=== PATIENT | female | born 2000 | race Caucasian/White ===

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

== ENCOUNTER → 2021-07-21 | Day surgery (SDC) | payer OTHER ==
--- NOTE | 2021-07-06 11:38 | PCM.PREANE ---
Preanesthetic Assessment - Allergies Allergies/Adverse Reactions: Allergies Allergy/AdvReac Type Severity Reaction Status Date / Time No Known Allergies Allergy Verified 06/26/19 22:37 PreAnesthesia Questionnaire - Past Health History Medical/Surgical History: Denies Medical/Surgical History [employer] History: Reports: - HOME MEDS Home Medications: Home Meds Prenat 115/Iron Fum/Folic/Dss [ 19 Tablet] 1 each PO DAILY 06/27/19 [History] Acetaminophen [Tylenol] 650 mg PO Q6H PRN tablet 06/28/19 [Rx] Docusate Sodium [Colace] 100 mg PO BID PRN cap 06/28/19 [Rx] Ibuprofen [Motrin] 600 mg PO Q6H PRN tablet 06/28/19 [Rx] teagan awaneL [Tucks] 1 pad TOP ASDIRECTED PRN pad 06/28/19 [Rx] - CURRENT (IN HOUSE) MEDS Current Meds: Current Medications Lactated Ringer's (Ringers, Lactated) 1,000 mls @ 125 mls/hr IV ASDIRECTED ALECIA Stop: 07/07/21 23:00 Lidocaine/Sodium Bicarbonate (Lidocaine 1%/Sod Bicarbonate In Ns 8.4% 1 Ml Syringe) 0.25 ml IDERM ONETIME PRN PRN Reason: Prior to IV Start Stop: 07/07/21 18:00 Sodium Chloride (Sodium Chloride 0.9% 10 Ml Syringe) 10 ml FLUSH ASDIRECTED PRN PRN Reason: Keep Vein Open Stop: 07/07/21 18:00
--- NOTE | 2021-07-20 21:46 | PCM.LDHP ---
L&D History of Present Illness - General Date of Service: 07/21/21 Admit Problem/Dx: Admission Diagnosis/Problem Admission Diagnosis/Problem 07/20/21 21:38 Amara is a 21-year-old 3 para 1-0-1-1 female presently at 13-5/7 weeks gestational age with an TOMMIE of 01/21/2022 who is scheduled for a cervical cerclage on 07/21/2021. Source of Information: Patient History Limitations: Reports: No Limitations - History of Present Illness Introduction:: Amara is a 21-year-old 3 para 1-0-1-1 female presently at 13-5/7 weeks gestational age with an TOMMIE of 01/21/2022 who is scheduled for a cervical cerclage on 07/21/2021. The procedure, risks, benefits, limitations, follow-up and alternatives of care discussed in detail with the patient. She appears to understand and wishes to proceed. Amara has a history of premature, asymptomatic cervical dilation with last having achieved a cervical dilation of 4 cm at approximately 24 weeks. She underwent cervical cerclage on an emergent basis at that time and was able to carry the to term. With the diagnosis of cervical incompetence patient has been advised to undergo earlier cervical cerclage. She appears understand the necessity and recommendation of the procedure and wishes to proceed. Consent has been signed. DENTAL INTERN history: 3 para 1-0-1-1. Patient had menarche at age 13. Cycles somewhat irregular 30 to 40 days in interval. LMP 03/25/2021. The first ultrasound was used to determine TOMMIE because of the irregular nature of her cycles. Ultrasound at 7-0/7 weeks gestational age on 06/04/2021 placed her TOMMIE at 01/21/2022. Patient is not using any control at the time of conception. Her previous obstetric history includes the followin. First trimester miscarriage at 5 weeksspontaneously passed. 2. Female infant born 06/26/2019 at 37-1/7 weeks gestational age after a short labor of 2 hours. 6 pounds 4 ouncesvacuum extraction deliverydelivered in [place]. Child's name is Olga Fleming. course: Patient declined all lab work at first. She declines group B strep screen. She desires a home . She declines flu vaccination. She declines prequel. She plans on breast-feeding. Laboratory testing in consists of CBC. Patient declined other tests at first visit. Allergies: None Medications: 1. vitamins 1 daily Past medical history: 1. Incompetent cervix 2. Vaginal delivery 3. Miscarriage first trimester 4. Fracture of left foot age 11 Past surgical history: 1. Cervical cerclage Family history: Mother is alive and well. Father is unknown. 1 brother alive and well. 3 sisters alive and well. Maternal grandmother is alive and well. Maternal grandfather is alive, health unknown. Paternal grandmother unknown. Paternal grandfather secondary to bone cancer. No family history of cancer otherwise. No bleeding clotting disorders. No anesthesia related issues or related problems. Social history: Patient is . is Aj. She denies any significance alcohol, drugs or tobacco. She is not employed at this time. She is a high school graduate. They live in [place], [place]. Review of systems: In general patient has no complaints. Patient does have symptoms. Abdomen is growing. No concerns of bleeding or cramping. Skin: Negative Lungs: No infectious symptoms or shortness of breath Cardiovascular: No chest pain or exercise intolerance Breasts: No lumps, changes in size, pain, dimpling, discharge or axillary or supraclavicular concerns. GI: Negative : symptoms noted. Musculoskeletal: Negative Neurological: Negative In general the patient is well-developed, well-nourished, pleasant female of stated age in no acute distress. Skin is warm dry without lesions. HEENT, neck and back within normal limits. Lungs are clear with good breath sounds in all lung amato. Cardiovascular exam shows regular and rhythm without murmurs. Abdomen is gravid. Size correlates with dates. Genital per speculum and bimanual shows normal external genitalia, BUS, pubic hair pattern. There is normal support, secretions and estrogenization vagina. Uterus is small, anterior, freely mobile, without parametrial induration or adnexal abnormalities. Extremities and neurological exam are grossly within normal limits. - Related Data Allergies/Adverse Reactions: Allergies Allergy/AdvReac Type Severity Reaction Status Date / Time No Known Allergies Allergy Verified 06/26/19 22:37 Home Medications: Home Meds Prenat 115/Iron Fum/Folic/Dss [ 19 Tablet] 1 each PO DAILY 06/27/19 [His tory] Acetaminophen [Tylenol] 650 mg PO Q6H PRN tablet 06/28/19 [Rx] Docusate Sodium [Colace] 100 mg PO BID PRN cap 06/28/19 [Rx] Ibuprofen [Motrin] 600 mg PO Q6H PRN tablet 06/28/19 [Rx] teagan Gudino [Tucks] 1 pad TOP ASDIRECTED PRN pad 06/28/19 [Rx] Past Medical History - Past Health History Medical/Surgical History: Denies Medical/Surgical History DENTAL INTERN History: Reports: Social & Family History - Family History Family Medical History: No Pertinent Family History - Caffeine Use Caffeine Use: Reports: None - Living Situation & Occupation Living situation: Reports: Single Occupation: Employed H&P Review of Systems - Review of Systems: Review Of Systems: See Below L&D Exam - Exam Exam: See Below - Problem List (1) 13 weeks gestation of SNOMED Code(s): 17338128 ICD Code: Z3A.13 - 13 WEEKS GESTATION OF Status: Acute (2) History of incompetent cervix, currently SNOMED Code(s): 588765350, 603046742 ICD Code: O09.299 - SUPRVSN OF PREG W POOR REPRODCTV OR OBSTET HISTORY, UNSP TRI Status: Acute (3) History of miscarriage SNOMED Code(s): 696695278 ICD Code: Z87.59 - PERSONAL HISTORY OF COMP OF PREG, CHLDBRTH AND THE PUERP Status: Acute Problem List Initiated/Reviewed/Updated: Yes Orders Last 24hrs: Active Orders 24 hr Category Date Time Status Peripheral IV Care [RC] . DIRECTED Care 07/21/21 00:01 Active Peripheral IV Care [RC] . DIRECTED Care 07/21/21 00:01 Active Verify Patient Consent Obtain [RC] ASDIRECTED Care 07/21/21 00:01 Active Verify Patient Consent Obtain [RC] ASDIRECTED Care 07/21/21 00:01 Active Lactated Ringers [Ringers, Lactated] 1,000 ml Med 07/21/21 00:01 Active IV ASDIRECTED Lidocaine 1%/Sod Bicarbonate [Buffered Lidocaine 1% in Med 07/21/21 00:01 Active NS 8.4%] 0.25 ml IDERM ONETIME PRN Sodium Chloride 0.9% [Saline Flush] Med 07/21/21 00:01 Active 10 ml FLUSH 0900,2100 Medication Administration Instruction [OM.PC] Routine Oth 07/21/21 00:01 Ordered Medication Administration Instruction [OM.PC] Routine Oth 07/21/21 00:01 Ordered Peripheral IV Insertion Adult [OM.PC] Routine Oth 07/21/21 00:01 Ordered Peripheral IV Insertion Adult [OM.PC] Routine Oth 07/21/21 00:01 Ordered Medication Orders Lactated Ringer's (Ringers, Lactated) 1,000 mls @ 125 mls/hr IV ASDIRECTED ALECIA Stop: 07/21/21 23:00 Lidocaine/Sodium Bicarbonate (Lidocaine 1%/Sod Bicarbonate In Ns 8.4% 1 Ml Syringe) 0.25 ml IDERM ONETIME PRN PRN Reason: Prior to IV Start Stop: 07/21/21 23:00 Sodium Chloride (Sodium Chloride 0.9% 10 Ml Syringe) 10 ml FLUSH 899,2099 [facility] Stop: 07/21/21 23:00 Assessment/Plan Comment:: 1. Amara is a 21-year-old 3 para 1-0-1-1 female presently at 13-5/7 weeks gestational age with an TOMMIE of 01/21/2022 who is scheduled for a cervical cerclage on 07/21/2021. The procedure, risks, benefits, limitations, follow-up and alternatives of care discussed in detail with the patient. She appears to understand and wishes to proceed. 2. Patient has declined labs. She is Rh+ by previous testing 3. Patient plans to breast-feed 4. Patient is declined flu vaccination, prequel, first testing. Plan: 1. Modified [place] cervical cerclage under general anesthesia. Procedure, risk, benefits, alternatives of care were discussed in detail. She appears understand and wished to proceed. Consent is signed. 2. Preoperative labs done 3. DVT prophylaxis SCDs 4. Infection prophylaxis with Ancef 2 g IV preop
[~2021-07-21] MED LIST: Acetaminophen 325 MG Tab PO SCH; Acetaminophen/Codeine 300-30 MG Tab PO PRN; Citric Acid/Sodium Citrate Solution 30 ML Cup PO SCH; Dexamethasone 4 MG/ML 5 ML MDV ONE; Famotidine 20 MG/2 ML SDV IVPUSH SCH; HYDROmorphone 0.5 MG/0.5 ML Syringe IVPUSH PRN; HYDROmorphone 0.5 MG/0.5 ML Syringe ONE; Lactated Ringers 1,000 ML IV SCH; Lactated Ringers 1,000 ML ONE; Lidocaine 1%/Sod Bicarbonate in NS 8.4% 1 ML Syringe IDERM PRN; Metoclopramide 10 MG/2 ML SDV IV PRN; Metoclopramide 10 MG/2 ML SDV IVPUSH SCH; Ondansetron 4 MG/2 ML SDV IVPUSH PRN; Ondansetron 4 MG/2 ML SDV ONE; Propofol 200 MG/20 ML SDV ONE; Sodium Chloride 0.9% 10 ML Syringe FLUSH PRN; Sodium Chloride 0.9% 10 ML Syringe FLUSH SCH; Succinylcholine/Sod PF 100 MG/5 ML SYRINGE IV ONE; ceFAZolin 1 GM Vial ONE; diphenhydrAMINE 50 MG/ML SDV ONE; ePHEDrine 50 MG/ML SDV IVPUSH PRN; ePHEDrine 50 MG/ML SDV ONE; fentaNYL 100 MCG/2 ML SDV IVPUSH PRN; fentaNYL 100 MCG/2 ML SDV ONE
--- NOTE | 2021-07-21 10:00 | PCM.PREANE ---
Preanesthetic Assessment - Procedure Proposed Procedure: cercicle cerclage-- 13 weeks - Anesthesia/Transfusion/Family Hx Anesthesia History: Prior Anesthesia Without Reaction Family History of Anesthesia Reaction: No Transfusion History: No Prior Transfusion(s) Intubation History: Unknown - Review of Systems General: No Symptoms Pulmonary: No Symptoms Cardiovascular: No Symptoms Gastrointestinal: No Symptoms Neurological: No Symptoms Other: Reports: None (History of incompetant cervix) - Physical Assessment NPO Status Date: 07/06/21 NPO Status Time: 23:00 Vital Signs: 98.2 16 99% 97 137/89 Height: 5 ft 3 in Weight: 84.7 kg ASA Class: 2 Mental Status: Alert & Oriented x3 Airway Class: Mallampati = 1 Dentition: Reports: Normal Dentition Thyro-Mental Finger Breadths: 3 Mouth Opening Finger Breadths: 3 ROM/Head Extension: Full Lungs: Clear to Auscultation, Normal Respiratory Effort Cardiovascular: Regular Rate, Regular Rhythm - Allergies Allergies/Adverse Reactions: Allergies Allergy/AdvReac Type Severity Reaction Status Date / Time No Known Allergies Allergy Verified 06/26/19 22:37 - Blood Blood Available: No - Acknowledgements Anesthesia Type Planned: General Anesthesia Pt an Appropriate Candidate for the Planned Anesthesia: Yes Alternatives and Risks of Anesthesia Discussed w Pt/Guardian: Yes Pt/Guardian Understands and Agrees with Anesthesia Plan: Yes PreAnesthesia Questionnaire - Past Health History Medical/Surgical History: Denies Medical/Surgical History Cardiovascular History: Reports: None Respiratory History: Reports: None Gastrointestinal History: Reports: None [employer] History: Reports: Musculoskeletal History: Reports: None Psychiatric History: Reports: None Oncologic (Cancer) History: Reports: None - Past Surgical History Female Surgical History: Reports: Other (See Below) (cervical cerclage) - SUBSTANCE USE Tobacco Use Status *Q: Never Tobacco User Tobacco Use Within Last Twelve Months: No Second Hand Smoke Exposure: No Recreational Drug Use History: No - HOME MEDS Home Medications: Home Meds Prenat 115/Iron Fum/Folic/Dss [ 19 Tablet] 1 each PO DAILY 06/27/19 [History] Acetaminophen [Tylenol] 650 mg PO Q6H PRN tablet 06/28/19 [Rx] Docusate Sodium [Colace] 100 mg PO BID PRN cap 06/28/19 [Rx] Ibuprofen [Motrin] 600 mg PO Q6H PRN tablet 06/28/19 [Rx] teagan Gudino [Tucks] 1 pad TOP ASDIRECTED PRN pad 06/28/19 [Rx] - CURRENT (IN HOUSE) MEDS Current Meds: Current Medications Citric Acid/Sodium Citrate (Citric Acid/Sodium Citrate Solution 30 Ml Cup) 30 ml PO ONETIME ALECIA Stop: 07/21/21 15:00 Last Admin: 07/21/21 09:30 Dose: 30 ml Documented by: Famotidine (Famotidine 20 Mg/2 Ml Sdv) 20 mg IVPUSH ONETIME ALECIA Stop: 07/21/21 15:00 Last Admin: 07/21/21 09:30 Dose: 20 mg Documented by: Lactated Ringer's (Ringers, Lactated) 1,000 mls @ 125 mls/hr IV ASDIRECTED ALECIA Stop: 07/21/21 23:00 Lidocaine/Sodium Bicarbonate (Lidocaine 1%/Sod Bicarbonate In Ns 8.4% 1 Ml Syringe) 0.25 ml IDERM ONETIME PRN PRN Reason: Prior to IV Start Stop: 07/21/21 23:00 Metoclopramide HCl (Metoclopramide 10 Mg/2 Ml Sdv) 10 mg IVPUSH ONETIME ALECIA Stop: 07/21/21 15:00 Last Admin: 07/21/21 09:30 Dose: 10 mg Documented by: Sodium Chloride (Sodium Chloride 0.9% 10 Ml Syringe) 10 ml FLUSH 09,2099 ALECIA Stop: 07/21/21 23:00 Discontinued Medications Citric Acid/Sodium Citrate (Citric Acid/Sodium Citrate Solution 30 Ml Cup) 30 ml PO ONETIME ALECIA Stop: 07/07/21 18:00 Famotidine (Famotidine 20 Mg/2 Ml Sdv) 20 mg IVPUSH ONETIME ALECIA Stop: 07/07/21 18:00 Lactated Ringer's (Ringers, Lactated) 1,000 mls @ 125 mls/hr IV ASDIRECTED ALECIA Stop: 07/07/21 23:00 Lidocaine/Sodium Bicarbonate (Lidocaine 1%/Sod Bicarbonate In Ns 8.4% 1 Ml Syringe) 0.25 ml IDERM ONETIME PRN PRN Reason: Prior to IV Start Stop: 07/07/21 18:00 Metoclopramide HCl (Metoclopramide 10 Mg/2 Ml Sdv) 10 mg IV ONETIME PRN PRN Reason: Nausea/Vomiting Stop: 07/07/21 18:00 Sodium Chloride (Sodium Chloride 0.9% 10 Ml Syringe) 10 ml FLUSH ASDIRECTED PRN PRN Reason: Keep Vein Open Stop: 07/07/21 18:00
--- NOTE | 2021-07-21 11:47 | PCM.OPNOTE ---
- General Post-Op/Procedure Note Date of Surgery/Procedure: 07/21/21 Operative Procedure(s): Modified Shirodkar cervical cerclage Findings: Cervix had reasonable substance of at least 3 cm. It appeared closed. It was soft. heart tones obtained before her surgery. Pre Op Diagnosis: 1. 13-week . 2. History of incompetent cervix Post-Op Diagnosis: Same Anesthesia Technique: General LMA Primary Surgeon: Abel Groves Secondary Surgeon: Juan Diego Gibson Anesthesia Provider: Kinsey Barton Reason Air Valve Repairer Was Necessary: Retraction, assistance, patient safety, quality of care. Fluid Replacement, Intraop: 1,000 EBL in mLs: 5 Complications: None Condition: Good Free Text/Narrative:: Surgery duration: 10 minutes The patient was taken to the operating room and placed in a supine position on the operating table. She received 2 g of Ancef preoperatively for infection prophylaxis and had sequential compression stockings in place for DVT prophylaxis. She was administered general endotracheal anesthesia and after adequate anesthesia was placed in a dorsal lithotomy position. Patient was prepped on the exterior by staff and was draped in usual fashion. A speculum was placed and a very gentle internal Betadine prep was done by myself. Cervix was visualized, evaluated and found to be dilated as previously documented. The anterior lip of the cervix and the posterior lip of the cervix were grasped with ring forceps and gently retracted to length and cervix as much as possible. Using Tevdek tape a circumferential stitch was placed with around the cervix at the highest possible position. It was placed in a modified Shirodkar fashion entering the subepithelial layer anteriorly at 12 o'clock position and placed in full circumference to anchor the suture in the appropriate position. When this was finished it was tied at the 12 o'clock position. An 2-0 silk suture was then used to secure the ends of the Tevdek tape to keep them from unraveling. At this time old blood was removed from the vagina. The cervix was noted to be entirely closed with the suture placement. Stitch was in place and approximately 2-1/2 cm from the end of the cervix. No problems were encountered. 2-0 Vicryl was used to close the posterior epithelium incision because of bleeding. Placed in short running fashion. The speculum was removed from the vagina, patient was returned to supine position and anesthesia was reversed. She left the operating room in good condition. heart rate was assessed after surgery and was found to be normal.
--- NOTE | 2021-07-21 12:03 | PCM.POSTAN ---
POST ANESTHESIA ASSESSMENT - MENTAL STATUS Mental Status: Alert - VITAL SIGNS Vital Signs: HR: 111 B/P: 126/57 Sat: 100% on 2LPM nasal cannula Temp: 98.2 Resp: 18 - RESPIRATORY Respiratory Status: Respiratory Rate WNL, Airway Patent, O2 Saturation Stable, Supplemental Oxygen - CARDIOVASCULAR CV Status: Pulse Rate WNL, Blood Pressure Stable - GASTROINTESTINAL GI Status: No Symptoms - POST OP HYDRATION Hydration Status: Adequate & Stable
--- NOTE | 2021-07-21 12:18 | PCM48HPAN ---
Post Anesthesia Note - EVALUATION WITHIN 48HRS OF ANESTHETIC Vital Signs in Normal Range: Yes Patient Participated in Evaluation: Yes Respiratory Function Stable: Yes Airway Patent: Yes Cardiovascular Function Stable: Yes Hydration Status Stable: Yes Pain Control Satisfactory: Yes Nausea and Vomiting Control Satisfactory: Yes Mental Status Recovered: Yes Vital Signs: Last Vital Signs Temp 36.8 C 07/21/21 11:50 Pulse 111 H 07/21/21 11:50 Resp 18 07/21/21 11:50 BP 126/57 L 07/21/21 11:50 Pulse Ox 100 07/21/21 11:50
== END | disposition home or self-care (01) ==
LOC: JD.SDS 14:07
PROVIDERS: ATTEND Obstetrics & Gynecology
DX: O34.32 Maternal care for cervical incompetence, second trimester (principal); Z79.899 Other long term (current) drug therapy; Z87.59 Personal history of other complications of pregnancy, childbirth and the puerperium; Z3A.13 13 weeks gestation of pregnancy
CPT/HCPCS: 36415; 59320; 86850; 86900; 86901; A9270; J0330; J0690; J1100; J1170; J1200; J2405; J2704; J2765; J3010; J3490; J7120; 00948; J2710